=== PATIENT | male | born 1995 | race Caucasian/White ===

== ENCOUNTER 2020-04-29 18:57 | Emergency (ER) | payer OTHER ==
[2020-04-29 20:55] LABS: BASOPHIL 0.7 % (0-2); EOSINOPHIL 4.8 % (0-5); HCT 50.4 % (42.0-52.0); HGB 16.8 g/dl (13.2-18.0); LYMPHOCYTE 27.9 % (15-48); MCH 30.3 pg (25.0-31.0); MCHC 33.3 g/dL (32.0-36.0); MCV 90.8 fL (78.0-100.0); MONOCYTE 6.1 % (0-12); MPV 9.7 fL (6.0-9.5); NEUTROPHIL 59.9 % (41-80); NRBC 0; PLT 226 K/uL (150-400); RBC 5.55 M/uL (4.70-6.00); RDW 11.8 % (11.5-14.0); WBC 10.4 K/uL (4.0-10.5)
[2020-04-29 21:26] LABS: ACETAMINOPHEN (TYLENOL) < 2.0 ug/mL (10.0-30.0); ALBUMIN 4.4 g/dL (3.4-5.0); ALKALINE PHOSHATASE 72 U/L (46-116); ALT 26 U/L (16-63); AST 12 U/L (15-37); BILIRUBIN - TOTAL 0.4 mg/dL (0.2-1.0); BUN 6 mg/dL (7-18); BUN/CREAT RATIO (CALC) 7.4 RATIO; CHLORIDE 103 mmol/L (98-107); CO2 (BICARBONATE) 31 mmol/L (21-32); CREATININE 0.81 mg/dL (0.67-1.17); GLOBULIN (CALCULATION) 3.4 g/dL; GLUCOSE 90 mg/dL (74-106); POTASSIUM 3.9 mmol/L (3.5-5.1); TOTAL PROTEIN 7.8 g/dL (6.4-8.2)
[2020-04-29 23:36] LABS: BILIRUBIN NEGATIVE (NEGATIVE); BLOOD NEGATIVE Ery/uL (NEGATIVE); CLARITY HAZY (CLEAR); COLOR YELLOW (YELLOW); GLUCOSE (U) NORMAL (NORMAL); LEUKOCYTES NEGATIVE Leu/uL (NEGATIVE); NITRITE NEGATIVE (NEGATIVE); PROTEIN NEGATIVE (NEGATIVE); UROBILINOGEN 0.2 mg/dL (0.2-1.0); pH 6.5 (5.0-9.0)
[2020-04-29 23:37] LABS: AMPHETAMINES NEGATIVE (NEGATIVE); BARBITURATES NEGATIVE (NEGATIVE); ECSTASY (MDMA) NEGATIVE (NEGATIVE); METHADONE NEGATIVE (NEGATIVE); OPIATES NEGATIVE (NEGATIVE); OXYCODONE NEGATIVE (NEGATIVE)
[2020-04-29 23:38] LABS: MARIJUANA (THC) POSITIVE (NEGATIVE)
== END 2020-04-30 02:57 | disposition other institution (70) ==
LOC: FER 18:57
PROVIDERS: Nurse Practitioner Family
DX: F32.9 Major depressive disorder, single episode, unspecified (principal); F19.90 Other psychoactive substance use, unspecified, uncomplicated; R44.3 Hallucinations, unspecified; F17.210 Nicotine dependence, cigarettes, uncomplicated; Z88.8 Allergy status to other drugs, medicaments and biological substances; Z20.822 Contact with and (suspected) exposure to COVID-19
CPT/HCPCS: 36415; 80053; 80305; 81003; 85025; 99285; G0480; U0002